=== PATIENT | female | born 1940 | race Caucasian/White ===

== ENCOUNTER 2023-09-13 06:02 | Emergency (ER) | payer MEDICARE, OTHER, SELFPAY ==
--- NOTE | 2023-09-13 | ECG_ITS ---
Test Reason : CODE Blood Pressure : / mmHG Vent. Rate : 053 BPM Atrial Rate : 000 BPM P-R Int : 000 ms QRS Dur : 180 ms QT Int : 522 ms P-R-T Axes : 000 -81 042 degrees QTc Int : 489 ms Wide QRS rhythm Right bundle branch block Left anterior fascicular block Bifascicular block Minimal voltage criteria for LVH, may be normal variant ( R in aVL ) Abnormal ECG No previous ECGs available Referred By: Generic ED Physician Electronically Signed By:LEILA WILSON
[2023-09-13 06:03] VITALS: BMI 36.3
[2023-09-13 06:33] LABS: Hematocrit 27.4 % (42.0-52.0); Hemoglobin 8.1 g/dl (14.0-18.0); Mean Corpuscular HGB Conc 29.6 g/dl (31.0-36.0); Mean Corpuscular Hemoglobin 32.3 pg (27.0-33.0); Mean Corpuscular Volume 109.2 fL (80.0-98.0); Mean Platelet Volume 10.3 fL (9.4-12.4); NRBC Pct Auto 0.2 /100WBC (0.0-0.2); Platelet Count 128 X10*3/uL (160-400); Red Blood Count 2.51 X10*6/uL (4.60-5.80); Red Cell Distribution Width 13.6 % (11.0-16.0); White Blood Count 10.3 X10*3/uL (4.8-10.8)
--- NOTE | 2023-09-13 06:37 | ED_ITS ---
HPI - CPR General Chief Complaint: Cardiac Arrest/CPR Stated Complaint: code Time Seen by Provider: 09/13/23 06:36 Source: EMS Mode of arrival: EMS Limitations: physical limitation (Cardiac arrest) History of Present Illness HPI narrative: 83-year-old female with a known history of hypertension, atrial fibrillation on Coumadin (PMH was obtained from after the code). presented by EMS in cardiac arrest. Patient called in the morning for complaint of difficulty breathing on EMS arrival patient witnessed collapsed went to P a initially then went to asystole, patient was given 8 mg of epinephrine by EMS at the scene with asystole and no pulse, patient was transported with Karlos's airway and continue CPR in progress. On arrival to the ED, patient was in asystole patient was intubated in the emergency department and was given 1 mg of epinephrine, 1 amp of bicarb IVs patient started to have pulse with sinus rhythm that was kept for about 2 minutes then patient went to asystole CPR was restarted was given 1 amp of epinephrine, patient had pulse again that remained for another 1 minute then went to aystole, EKG showed RBBB rate of 38 patient was placed on external pacer pads. Patient remained in asystole and code was ended and pronounced at 06:30. Related Data Allergies Allergy/AdvReac Type Severity Reaction Status Date / Time Unable to Assess Allergy Verified 09/13/23 07:10 Review of Systems 2 Review of Systems: Yes Unobtainable due to mental condition (Asystole) [facility] Social History Social History Advance Directives: No Advance Directives Information Provided: No Physical Exam 2 Vital Signs: Vital Signs: BMI result Body Mass Index 36.3 Intubated, asystole. General: Intubated, unresponsive. Eye exam: 3 mm nonreactive bilaterally. Head: No external head injury or sign of trauma. Neck: No C-spine deformity, no soft tissue swelling. Chest: No sign of trauma. Respiratory: Apnea, intubated. Cardiac exam: Intermittent bradycardia and asystole. Abdomen: Distended, no soft tissue mass. Back: Small area of ecchymosis on the right flank area. Neuro: GCS of 3, unresponsive. Extremity: no deformity. Course Reevaluation(s) Reevaluation #1: Cardiac arrest, was pronounced at 06:30 a.m. I contacted the [facility], case also was declined by medical front desk coordinator case [id number] by Ruth Nichole. Time: 06:54 Medical Decision Making Differential Diagnosis Differential Diagnoses: The differential diagnosis associated with the presentation includes (Cardiac arrest, dysrhythmia, electrolyte abnormality.) Lab Data 09/13/23 06:24 09/13/23 06:24 Labs: Lab Results 09/13/23 09/13/23 09/13/23 Range/Units 06:09 06:17 06:24 WBC 10.3 (4.8-10.8) X10*3/uL RBC 2.51 L (4.60-5.80) X10*6/uL Hgb 8.1 L (14.0-18.0) g/dl Hct 27.4 L (42.0-52.0) % MCV 109.2 H (80.0-98.0) fL MCH 32.3 (27.0-33.0) pg MCHC 29.6 L (31.0-36.0) g/dl RDW 13.6 (11.0-16.0) % Plt Count 128 L (160-400) X10*3/uL MPV 10.3 (9.4-12.4) fL Immature Gran % (Auto) Cancelled Neut % (Auto) Cancelled Lymph % (Auto) Cancelled [place] % (Auto) Cancelled Eos % (Auto) Cancelled Baso % (Auto) Cancelled Lymph # (Auto) Cancelled [place] # (Auto) Cancelled Eos # (Auto) Cancelled Baso # (Auto) Cancelled Abs Immat Gran (auto) Cancelled Absolute Neuts (auto) Cancelled Absolute Nucleated RBC 0.020 H (0.0-0.012) X10*3/uL Nucleated RBC % (auto) 0.2 (0.0-0.2) /100WBC Neutrophils % (Manual) 48 (45-73) % Band Neutrophils % 4 (3-5) % Lymphocytes % (Manual) 45 H (20-40) % Monocytes % (Manual) 3 (2-11) % Abs Neuts (Manual) 5.4 (2.0-8.3) X10*3/uL Lymphocytes # (Manual) 4.6 (1.2-4.9) X10*3/uL Monocytes # (Manual) 0.3 (0.1-1.2) X10*3/uL Platelet Estimate SLIGHTLY DECREASED (NORMAL) Plt Morphology Comment NORMAL RBC Morphology NOTED [place] Cells 2+ (3-5) /OIF Sodium 143 (135-145) mmol/L Potassium 5.3 H (3.3-5.1) mmol/L Chloride 112 H (96-108) mmol/L Carbon Dioxide 15 L (22-29) mmol/L Anion Gap 21 H (12-20) BUN 41 H (9-16) mg/dL Creatinine 1.59 H (0.5-1.4) mg/dL Estim Creat Clear Calc 26.9 Estimated GFR 31 POC Glucose 91 79 (60-115) mg/dL Random Glucose 469 H* (60-115) mg/dL Lactic Acid 10.5 H* (0.5-2.0) mmol/L Calcium 7.0 L (8.4-10.2) mg/dL Total Bilirubin 0.2 (0.0-1.0) mg/dL AST 200 H (5-31) U/L ALT 162 H (0-31) U/L Alkaline Phosphatase 78 (39-117) U/L Troponin I High Sens 432.5 H* (<3.5-17.0) ng/L Total Protein 4.3 L (6.5-8.0) g/dL Albumin 2.1 L (3.5-5.0) g/dL Procedures Intubation Intubation Type:: Emergency Endotracheal Intubation Intubation Date:: 09/13/23 Intubation Time:: 06:00 Time out performed: Yes sedative: none Laryngoscope: fiber optic video scope ET Tube Size: 7.5 Tube Secured Depth (cm): 22 Tube Secured Location: lips Tube Placement Confirmation: visualized tube passing through cords, equal breath sounds bilaterally and no breath sounds over epigastrium Intubation Complications: none Discharge Plan Discharge Clinical Impression: Cardiac arrest Patient Disposition: Date/Time: 09/13/23 06:30
--- NOTE | 2023-09-13 06:43 | PC.NURSE ---
[employer] notified of pt expiration. Declines at this time due to age. .
[2023-09-13 06:44] LABS: Glucose, Whole Blood 79 mg/dL (60-115)
[2023-09-13 07:15] LABS: Band Neutrophils Percent 4 % (3-5); Lymphocytes Absolute Manual 4.6 X10*3/uL (1.2-4.9); Lymphocytes Percent Manual 45 % (20-40); Monocytes Absolute Manual 0.3 X10*3/uL (0.1-1.2); Monocytes Percent Manual 3 % (2-11); Neutrophils Absolute Manual 5.4 X10*3/uL (2.0-8.3); Neutrophils Percent Manual 48 % (45-73)
[2023-09-13 07:17] LABS: Burr Cells 2+ (3-5) /OIF; Platelet Estimate SLIGHTLY DECREASED (NORMAL); Platelet Morphology Comment NORMAL; RBC Morphology NOTED
--- NOTE | 2023-09-13 07:19 | PC.NURSE ---
[employer] notified .
[2023-09-13 07:20] LABS: Alanine Aminotransferase 162 U/L (0-31); Albumin Level 2.1 g/dL (3.5-5.0); Alkaline Phosphatase 78 U/L (39-117); Anion Gap 21 (12-20); Aspartate Amino Transferase 200 U/L (5-31); Bilirubin Total 0.2 mg/dL (0.0-1.0); Blood Urea Nitrogen 41 mg/dL (9-16); Carbon Dioxide 15 mmol/L (22-29); Chloride 112 mmol/L (96-108); Creatinine Clr Calc Pharmacy 26.9; Estimated Glomerular Filt Rate 31; Glucose Random 469 mg/dL (60-115); Lactic Acid 10.5 mmol/L (0.5-2.0); Potassium 5.3 mmol/L (3.3-5.1); Sodium 143 mmol/L (135-145); Total Protein 4.3 g/dL (6.5-8.0)
[2023-09-13 07:23] LABS: Glucose, Whole Blood 91 mg/dL (60-115)
[2023-09-13 07:29] LABS: Troponin-I High Sensitivity 432.5 ng/L (<3.5-17.0)
[2023-09-13 08:25] LABS: B Type Natriuretic Peptide 261 pg/mL (<100)
[2023-09-13 08:30] LABS: Reflex Lactate? Lactic Acid Added
== END 2023-09-13 08:44 | disposition expired ==
PROVIDERS: Emergency Provider Emergency Medicine
DX: I46.9 Cardiac arrest, cause unspecified (principal); I10 Essential (primary) hypertension; I48.91 Unspecified atrial fibrillation
CPT/HCPCS: 31500; 36415; 80053; 82947; 83605; 83880; 84484; 85007; 85027; 87040; 93005; 96374; 96375; 99283; 99285; J0171

== ENCOUNTER → 2023-09-13 06:17 | Outpatient (BNV) | payer MEDICARE, OTHER, SELFPAY | PROVIDERS: Emergency Provider Emergency Medicine; Visit Provider Internal Medicine | DX: I46.9 Cardiac arrest, cause unspecified (principal) | CPT/HCPCS: 93010 ==